=== PATIENT | male | born 1960 | race Caucasian/White ===

== ENCOUNTER 2017-12-09 08:34 | Inpatient (IN) | payer OTHER ==
[2017-12-09 10:02] VITALS: BMI 26.6
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
[2017-12-09] MEDS ORDERED: IBUPROFEN 400 MG TABLET (FP) PO PRN (10:50)
[2017-12-09] MEDS ORDERED: MAG HYDROX/AL HYDROX/SIMETH 30 ML UNIT-DOSE CUP PO PRN (10:50)
[2017-12-09] MEDS ORDERED: NICOTINE POLACRILEX 4 MG GUM BUC PRN (10:50)
[2017-12-09] MEDS ORDERED: MAGNESIUM HYDROX 2400MG/30ML ORAL SUSPENSION 30 ML CUP PO PRN (10:50)
[2017-12-09] MEDS ORDERED: P-EPHED 60MG/TRIPROLIDI 2.5MG TABLET PO PRN (10:50)
[2017-12-09] MEDS ORDERED: LOPERAMIDE HCL 2 MG CAPSULE PO PRN (10:50)
[2017-12-09] MEDS ORDERED: MENTHOL/PHENOL 1 EACH UD MM PRN (10:50)
[2017-12-09] MEDS ORDERED: hydrOXYzine PAMOATE 25 MG CAPSULE (FP) PO PRN (10:50)
[2017-12-09] MEDS ORDERED: MAGNESIUM CITRATE 300 ML BOTTLE PO PRN (10:50)
[2017-12-09] MEDS ORDERED: ACETAMINOPHEN 325 MG TABLET (FP) PO PRN (10:50)
[2017-12-09] MEDS ORDERED: chlordiazePOXIDE HCL 25 MG CAPSULE PO PRN (10:50)
[2017-12-09] MEDS ORDERED: guaiFENesin/D-METHORPHAN HB 10 ML UNIT-DOSE CUPS PO PRN (11:24)
[2017-12-09] MEDS ORDERED: chlordiazePOXIDE HCL 25 MG CAPSULE PO ONE (11:45)
[2017-12-09] MEDS: INSULIN (NOVOLOG MIX 70/30) 100 UNITS/ML MDV SQ SCH (17:35)
[2017-12-09] MEDS: chlordiazePOXIDE HCL 25 MG CAPSULE PO SCH ×2 (17:35→22:14)
[2017-12-09 19:15] LABS: URINE APPEARANCE CLEAR; URINE BILIRUBIN NEGATIVE (NEGATIVE); URINE BLOOD NEGATIVE (NEGATIVE); URINE COLOR LTYELLOW; URINE GLUCOSE (UA) 3+ (NEGATIVE); URINE KETONE 1+ (NEGATIVE); URINE LEUK ESTERASE NEGATIVE (NEGATIVE); URINE NITRITE NEGATIVE (NEGATIVE); URINE PROTEIN NEGATIVE (NEGATIVE); URINE UROBILINOGEN NEGATIVE mg/dL (0.2-1.0)
[2017-12-09] MEDS: ATORVASTATIN CA 40 MG TABLET (FP) PO SCH (22:14)
[2017-12-09] MEDS: THIAMINE HCL 100 MG TABLET (FP) PO SCH (22:14)
[2017-12-10] MEDS: chlordiazePOXIDE HCL 25 MG CAPSULE PO SCH ×4 (05:25→22:11)
[2017-12-10] MEDS ORDERED: INSULIN (NOVOLOG) ASPART 100 UNITS/ML 10ML VIAL SQ SCH (07:00)
[2017-12-10] MEDS: INSULIN (NOVOLOG MIX 70/30) 100 UNITS/ML MDV SQ SCH ×2 (07:13→17:22)
--- NOTE | 2017-12-10 07:29 | CONSULT ---
[facility] Psychiatric Consult - Data Date of interview: 12/10/17 Admission source: [facility] ED Identifying data: Mr Watson is a 57 years old maried male, father of a 34 years old son, unemployed on SSI, homeless seeking detox treatment for alcohol Substance Abuse History: Reports history of alcohol use. He started drinking alcohol at age 19, consumes one pint of liquor & 15x 24oz of beer daily. Last drank on 12/09/17 Medical History: Significant for bronchial asthma, hypertension, hyperlipidemia , diabetes mellitus, hepatitis C and history of cardiothoracic surgery for heart bypass. Smokes 6 cigarettes daily Psychiatric History: Denies history of previous psychiatric treament Physical/Sexual Abuse/Trauma History: Denies history of emotional, physical or sexual abuse as well as DV relationship Additional Comment: Reports history of one previous misdemeanor arrest for drinking in public Mental Status Exam - Mental Status Exam Alert and Oriented to: Time, Place, Person Cognitive Function: Fair Patient Appearance: Disheveled Mood: Anxious Affect: Appropriate Patient Behavior: Cooperative Speech Pattern: Clear Voice Loudness: Normal Thought Process: Intact, Goal Oriented Hallucinations: Denies Suicidal Ideation: Denies Homicidal Ideation: Denies Insight/Judgement: Fair Appetite: Good Muscle strength/Tone: Normal Gait/Station: Normal Psychiatric Findings - Problem List ([place] 1, 2,3) (1) Alcohol-induced anxiety disorder Current Visit: Yes Status: Acute (2) Alcohol dependence with uncomplicated withdrawal Current Visit: Yes Status: Acute (3) Nicotine dependence Current Visit: Yes Status: Chronic (4) History of heart bypass surgery Current Visit: Yes Status: Resolved (5) Diabetes mellitus with insulin therapy Current Visit: Yes Status: Chronic (6) HTN (hypertension) Current Visit: Yes Status: Chronic Qualifiers: Hypertension type: essential hypertension Qualified Code(s): I10 - Essential (primary) hypertension (7) Hepatitis C Current Visit: Yes Status: Chronic Qualifiers: Viral hepatitis chronicity: chronic (8) History of PA (myocardial infarction) Current Visit: Yes Status: Chronic (9) Hypercholesteremia Current Visit: Yes Status: Chronic - Initial Treatment Plan Initial Treatment Plan: 1) Start Vistaril 25 mg po Q 4hrs prn for anxiety. 2) Continue inpatient detoxification
[2017-12-10 10:14] LABS: CHLORIDE 100 mmol/L (98-107); HEMATOCRIT 39.6 % (35.4-49); MCH 32.3 pg (25.7-33.7); MCHC 35.3 g/dl (32.0-35.9); MEAN CELL VOLUME 91.7 fl (80-96); MEAN PLT VOLUME 8.4 fl (7.5-11.1); PLATELET COUNT 155 K/MM3 (134-434); POTASSIUM 4.1 mmol/L (3.5-5.1); RBC 4.32 M/mm3 (4.00-5.60); RDW 13.8 % (11.9-15.9); SODIUM 134 mmol/L (136-145); WHITE BLOOD COUNT 4.9 K/mm3 (4.0-10.0)
[2017-12-10] MEDS: metoPROLOL SUCCINATE 25 MG TAB.SR.24H (FP) PO SCH (10:17)
[2017-12-10] MEDS: PRENATAL VITAMINS W/ FOLIC ACID TABLET (FP) PO SCH (10:17)
[2017-12-10 10:24] LABS: ALBUMIN 3.5 g/dl (3.4-5.0); ALK PHOS 117 U/L (45-117); ANION GAP 5 (8-16); BILIRUBIN,TOTAL 1.9 mg/dL (0.2-1.0); BLOOD UREA NITROGEN 11 mg/dL (7-18); CALCIUM 8.2 mg/dL (8.5-10.1); CO2 29 mmol/L (21-32); CREATININE 0.8 mg/dL (0.7-1.3); GLUCOSE,RANDOM 271 mg/dL (74-106); SGOT/AST 134 U/L (15-37); SGPT/ALT 251 U/L (12-78); TOT PROT 7.1 g/dl (6.4-8.2)
--- NOTE | 2017-12-10 15:47 | PN ---
S CIWA - CIWA Score Nausea/Vomitin Muscle Tremors: 4-Moderate,w/Arms Extend Anxiety: 3 Agitation: 3 Paroxysmal Sweats: 3 Orientation: 0-Oriented Tacttile Disturbances: 1-Very Mild Itch/Numbness Auditory Disturbances: 0-None Visual Disturbances: 0-None Headache: 2-Mild CIWA-Ar Total Score: 19 S Progress Note (SOAP) Subjective: Tremor, sweating, chills, headache, interrupted sleep Objective: 12/10/17 15:42 Last Vital Signs Temp Pulse Resp BP Pulse Ox 97 F L 104 H 18 116/80 12/10/17 14:19 12/10/17 14:19 12/10/17 14:19 12/10/17 14:19 Laboratory Tests 12/09/17 12/09/17 12/09/17 10:06 15:45 16:39 WBC RBC Hgb Hct MCV MCH MCHC RDW Plt Count MPV Sodium Potassium Chloride Carbon Dioxide Anion Gap BUN Creatinine Creat Clearance w eGFR POC Glucometer 235 397 Random Glucose Calcium Total Bilirubin AST ALT Alkaline Phosphatase Total Protein Albumin Urine Color Ltyellow Urine Appearance Clear Urine pH 6.0 Ur Specific [place] 1.015 Urine Protein Negative Urine Glucose (UA) 3+ H Urine Ketones 1+ H Urine Blood Negative Urine Nitrite Negative Urine Bilirubin Negative Urine Urobilinogen Negative Ur Leukocyte Esterase Negative RPR Titer 12/09/17 12/10/17 12/10/17 21:33 07:10 07:20 WBC 4.9 RBC 4.32 Hgb 14.0 Hct 39.6 MCV 91.7 MCH 32.3 MCHC 35.3 RDW 13.8 Plt Count 155 MPV 8.4 Sodium Potassium Chloride Carbon Dioxide Anion Gap BUN Creatinine Creat Clearance w eGFR POC Glucometer 376 334 Random Glucose Calcium Total Bilirubin AST ALT Alkaline Phosphatase Total Protein Albumin Urine Color Urine Appearance Urine pH Ur Specific [place] Urine Protein Urine Glucose (UA) Urine Ketones Urine Blood Urine Nitrite Urine Bilirubin Urine Urobilinogen Ur Leukocyte Esterase RPR Titer 12/10/17 12/10/17 07:20 07:20 WBC RBC Hgb Hct MCV MCH MCHC RDW Plt Count MPV Sodium 134 L Potassium 4.1 Chloride 100 Carbon Dioxide 29 Anion Gap 5 L BUN 11 Creatinine 0.8 Creat Clearance w eGFR > 60 POC Glucometer Random Glucose 271 H Calcium 8.2 L Total Bilirubin 1.9 H AST 134 H ALT 251 H Alkaline Phosphatase 117 Total Protein 7.1 Albumin 3.5 Urine Color Urine Appearance Urine pH Ur Specific [place] Urine Protein Urine Glucose (UA) Urine Ketones Urine Blood Urine Nitrite Urine Bilirubin Urine Urobilinogen Ur Leukocyte Esterase RPR Titer Nonreactive Labs noted: glucose 271, elevated LFTs Assessment: 12/10/17 15:47 Withdrawal symptoms Noted with hyperglycemia and elevated LFTs Plan: Continue detox Hyperglycemia secondary to DMT2 with hyperglycemia: continue regimen, start finger stick bid Elevated LFTs: denies liver problem; repeat LFT, send hepatitis c
--- NOTE | 2017-12-10 20:36 | EKG ---
Test Reason : Blood Pressure : / mmHG Vent. Rate : 103 BPM Atrial Rate : 103 BPM P-R Int : 146 ms QRS Dur : 076 ms QT Int : 352 ms P-R-T Axes : 063 045 044 degrees QTc Int : 461 ms SINUS TACHYCARDIA OTHERWISE NORMAL ECG NO PREVIOUS ECGS AVAILABLE Confirmed by HANH SMITH MD ([id number]) on 12/10/2017 8:35:56 PM Referred By: Confirmed By:HANH SMITH MD
[2017-12-10] MEDS: THIAMINE HCL 100 MG TABLET (FP) PO SCH (22:11)
[2017-12-10] MEDS: ATORVASTATIN CA 40 MG TABLET (FP) PO SCH (22:11)
[2017-12-11] MEDS: chlordiazePOXIDE HCL 25 MG CAPSULE PO SCH ×2 (05:48→10:24)
[2017-12-11] MEDS ORDERED: INSULIN (NOVOLOG MIX 70/30) 100 UNITS/ML MDV SQ ONE (05:53)
[2017-12-11] MEDS: INSULIN (NOVOLOG MIX 70/30) 100 UNITS/ML MDV SQ SCH (06:52)
[2017-12-11] MEDS: PRENATAL VITAMINS W/ FOLIC ACID TABLET (FP) PO SCH (10:24)
[2017-12-11] MEDS: metoPROLOL SUCCINATE 25 MG TAB.SR.24H (FP) PO SCH (10:24)
[2017-12-11 10:42] LABS: ALBUMIN 3.6 g/dl (3.4-5.0); BILIRUBIN,DIRECT 0.2 mg/dL (0.0-0.2); BILIRUBIN,TOTAL 0.9 mg/dL (0.2-1.0); TOT PROT 7.3 g/dl (6.4-8.2)
--- NOTE | 2017-12-11 11:23 | PN ---
[facility] CIWA - CIWA Score Nausea/Vomitin-No Nausea/No Vomiting Muscle Tremors: 4-Moderate,w/Arms Extend Anxiety: 4-Mod. Anxious/Guarded Agitation: 4-Moderately Restless Paroxysmal Sweats: 1-Minimal Palms Moist Orientation: 0-Oriented Tacttile Disturbances: 3-Moderate Itch/Numb/Burn Auditory Disturbances: 0-None Visual Disturbances: 0-None Headache: 0-None Present CIWA-Ar Total Score: 16 BHS Progress Note (SOAP) Subjective: TREMORS, ANXIETY, SWEATS, MUSCLE ACHES. PT STATES HE IS ON ANTIBIOTIC OINTMENT DUE TO ZIPPER INJURY ON HIS GROIN AREA. Objective: 12/11/17 11:22 Vital Signs Temperature 97.1 F L 12/11/17 10:09 Pulse Rate 118 H 12/11/17 10:09 Respiratory Rate 18 12/11/17 10:09 Blood Pressure 115/77 12/11/17 10:09 O2 Sat by Pulse Oximetry (%) Laboratory Last Values WBC 4.9 K/mm3 (4.0-10.0) 12/10/17 07:20 RBC 4.32 M/mm3 (4.00-5.60) 12/10/17 07:20 Hgb 14.0 GM/dL (11.7-16.9) 12/10/17 07:20 Hct 39.6 % (35.4-49) 12/10/17 07:20 MCV 91.7 fl (80-96) 12/10/17 07:20 MCH 32.3 pg (25.7-33.7) 12/10/17 07:20 MCHC 35.3 g/dl (32.0-35.9) 12/10/17 07:20 RDW 13.8 % (11.9-15.9) 12/10/17 07:20 Plt Count 155 K/MM3 (134-434) 12/10/17 07:20 MPV 8.4 fl (7.5-11.1) 12/10/17 07:20 Sodium 134 mmol/L (136-145) L 12/10/17 07:20 Potassium 4.1 mmol/L (3.5-5.1) 12/10/17 07:20 Chloride 100 mmol/L (98-107) 12/10/17 07:20 Carbon Dioxide 29 mmol/L (21-32) 12/10/17 07:20 Anion Gap 5 (8-16) L 12/10/17 07:20 BUN 11 mg/dL (7-18) 12/10/17 07:20 Creatinine 0.8 mg/dL (0.7-1.3) 12/10/17 07:20 Creat Clearance w eGFR > 60 (>60) 12/10/17 07:20 POC Glucometer 358 UNITS (80-120) 12/11/17 05:50 Random Glucose 271 mg/dL (74-106) H 12/10/17 07:20 Calcium 8.2 mg/dL (8.5-10.1) L 12/10/17 07:20 Total Bilirubin 0.9 mg/dL (0.2-1.0) D 12/11/17 07:00 Direct Bilirubin 0.2 mg/dL (0.0-0.2) 12/11/17 07:00 AST 138 U/L (15-37) H 12/11/17 07:00 ALT 282 U/L (12-78) H 12/11/17 07:00 Alkaline Phosphatase 167 U/L (45-117) H D 12/11/17 07:00 Total Protein 7.3 g/dl (6.4-8.2) 12/11/17 07:00 Albumin 3.6 g/dl (3.4-5.0) 12/11/17 07:00 Urine Color Ltyellow 12/09/17 15:45 Urine Appearance Clear 12/09/17 15:45 Urine pH 6.0 (5.0-8.0) 12/09/17 15:45 Ur Specific [employer] 1.015 (1.001-1.035) 12/09/17 15:45 Urine Protein Negative (NEGATIVE) 12/09/17 15:45 Urine Glucose (UA) 3+ (NEGATIVE) H 12/09/17 15:45 Urine Ketones 1+ (NEGATIVE) H 12/09/17 15:45 Urine Blood Negative (NEGATIVE) 12/09/17 15:45 Urine Nitrite Negative (NEGATIVE) 12/09/17 15:45 Urine Bilirubin Negative (NEGATIVE) 12/09/17 15:45 Urine Urobilinogen Negative mg/dL (0.2-1.0) 12/09/17 15:45 Ur Leukocyte Esterase Negative (NEGATIVE) 12/09/17 15:45 RPR Titer Nonreactive (NONREACTIVE) 12/10/17 07:20 LABS NOTED, ELEVATED LIVER ENZYMES PT WILL FOLLOW UP WITH HIS PRIMARY CARE PROVIDER WITH LAB RESULTS FOR WORK UP FOR ELEVATED LIVER ENZYMES AFTER DETOX. HX OF UNTREATED HEP C. 12/11/17 11:28 Assessment: 12/11/17 11:23 WITHDRAWAL SX Plan: CONTINUE DETOX BACITRACIN OINTMENT APPLY TO AREA DIRECTED.
[2017-12-11] MEDS ORDERED: BACITRACIN 0.9 GM PACKET TP SCH (12:55)
[2017-12-11 13:32] VITALS: BP 106/68; PULSE 85; TEMP 96.5
--- NOTE | 2017-12-11 15:53 | PN ---
[facility] Progress Note Note: PT DECLINED TO CONTINUE WITH DETOX. PT STATES HE WANTS TO LEAVE BECAUSE HIS WANTS HIM TO GO TO REHAB AFTER DETOX OR WILL NOT COME HOME BUT HE DOES NOT WANT THAT. SAYS HE RATHER "GO TO THE [facility] TODAY". ALL EFFORTS TO ENCOURAGE PATIENT TO STAY WAS UNSUCCESSFUL AND PATIENT MAINTAINED THAT HE MUST LEAVE TODAY. PT WAS ALSO SEEN BY HIS COUNSELOR,LENORE LORENZO. ALERT O X 3. NAD. PT SIGNED OUT AMA.
--- NOTE | 2017-12-11 15:57 | DS ---
[facility] Detox Discharge Summary Admission Date: 12/09/17 Discharge Date: 12/11/17 - History Present History: Alcohol Dependence Additional Comments: PT SIGNED OUT AMA. PT STATES HE MADE A CALL TO HIS WHO WANTS HIM TO GO TO REHAB AFTER DETOX OR ELSE NOT TO COME HOME AND "GO TO [facility]". PT SAYS HE IS NOT GOING TO REHAB AND WILL RATHER GO TO THE [facility] TODAY. PT WAS SPOKEN TO BY HIS COUNSELOR LENORE LORENZO AND THIS ACCOUNTING METHODS ANALYST BUT UNSUCCESSFUL. ALERT O X 3. NAD. Pertinent Past History: SEE DX BELOW - Physical Exam Results Vital Signs: Vital Signs Temperature 96.5 F L 12/11/17 13:31 Pulse Rate 85 12/11/17 13:31 Respiratory Rate 18 12/11/17 13:31 Blood Pressure 106/68 12/11/17 13:31 O2 Sat by Pulse Oximetry (%) Pertinent Admission Physical Exam Findings: WITHDRAWAL SX Laboratory Last Values WBC 4.9 K/mm3 (4.0-10.0) 12/10/17 07:20 RBC 4.32 M/mm3 (4.00-5.60) 12/10/17 07:20 Hgb 14.0 GM/dL (11.7-16.9) 12/10/17 07:20 Hct 39.6 % (35.4-49) 12/10/17 07:20 MCV 91.7 fl (80-96) 12/10/17 07:20 MCH 32.3 pg (25.7-33.7) 12/10/17 07:20 MCHC 35.3 g/dl (32.0-35.9) 12/10/17 07:20 RDW 13.8 % (11.9-15.9) 12/10/17 07:20 Plt Count 155 K/MM3 (134-434) 12/10/17 07:20 MPV 8.4 fl (7.5-11.1) 12/10/17 07:20 Sodium 134 mmol/L (136-145) L 12/10/17 07:20 Potassium 4.1 mmol/L (3.5-5.1) 12/10/17 07:20 Chloride 100 mmol/L (98-107) 12/10/17 07:20 Carbon Dioxide 29 mmol/L (21-32) 12/10/17 07:20 Anion Gap 5 (8-16) L 12/10/17 07:20 BUN 11 mg/dL (7-18) 12/10/17 07:20 Creatinine 0.8 mg/dL (0.7-1.3) 12/10/17 07:20 Creat Clearance w eGFR > 60 (>60) 12/10/17 07:20 POC Glucometer 358 UNITS (80-120) 12/11/17 05:50 Random Glucose 271 mg/dL (74-106) H 12/10/17 07:20 Calcium 8.2 mg/dL (8.5-10.1) L 12/10/17 07:20 Total Bilirubin 0.9 mg/dL (0.2-1.0) D 12/11/17 07:00 Direct Bilirubin 0.2 mg/dL (0.0-0.2) 12/11/17 07:00 AST 138 U/L (15-37) H 12/11/17 07:00 ALT 282 U/L (12-78) H 12/11/17 07:00 Alkaline Phosphatase 167 U/L (45-117) H D 12/11/17 07:00 Total Protein 7.3 g/dl (6.4-8.2) 12/11/17 07:00 Albumin 3.6 g/dl (3.4-5.0) 12/11/17 07:00 Urine Color Ltyellow 12/09/17 15:45 Urine Appearance Clear 12/09/17 15:45 Urine pH 6.0 (5.0-8.0) 12/09/17 15:45 Ur Specific [place] 1.015 (1.001-1.035) 12/09/17 15:45 Urine Protein Negative (NEGATIVE) 12/09/17 15:45 Urine Glucose (UA) 3+ (NEGATIVE) H 12/09/17 15:45 Urine Ketones 1+ (NEGATIVE) H 12/09/17 15:45 Urine Blood Negative (NEGATIVE) 12/09/17 15:45 Urine Nitrite Negative (NEGATIVE) 12/09/17 15:45 Urine Bilirubin Negative (NEGATIVE) 12/09/17 15:45 Urine Urobilinogen Negative mg/dL (0.2-1.0) 12/09/17 15:45 Ur Leukocyte Esterase Negative (NEGATIVE) 12/09/17 15:45 RPR Titer Nonreactive (NONREACTIVE) 12/10/17 07:20 PT WILL FOLLOW UP WITH HIS PMD WITH COPY OF LAB RESULTS PROVIDED WITH DISCHARGE PACKET. - Treatment Hospital Course: Discharged Condition Good - Medication Discharge Medications: Ambulatory Orders Atorvastatin Ca [Lipitor] 40 mg PO HS 12/09/17 Insulin (Novolog 70/30) [Novolog Mix 70/30 Flexpen -] 20 units SQ ACDIN Insulin (Novolog 70/30) [Novolog Mix 70/30 Flexpen -] 50 units SQ ACBK 12/09/17 Metoprolol Succinate [Toprol XL -] 25 mg PO DAILY 12/09/17 - Diagnosis (1) Alcohol dependence with uncomplicated withdrawal Current Visit: Yes Status: Acute (2) Diabetes mellitus with insulin therapy Current Visit: Yes Status: Chronic (3) HTN (hypertension) Current Visit: Yes Status: Chronic Qualifiers: Hypertension type: essential hypertension Qualified Code(s): I10 - Essential (primary) hypertension (4) Hepatitis C Current Visit: Yes Status: Chronic Qualifiers: Viral hepatitis chronicity: chronic (5) History of PR (myocardial infarction) Current Visit: Yes Status: Chronic (6) Hypercholesteremia Current Visit: Yes Status: Chronic (7) Nicotine dependence Current Visit: Yes Status: Acute Qualifiers: Nicotine product type: cigarettes Substance use status: in withdrawal Qualified Code(s): F17.213 - Nicotine dependence, cigarettes, with withdrawal (8) History of heart bypass surgery Current Visit: Yes Status: Resolved (9) Elevated liver function tests Current Visit: Yes Status: Acute - AMA Did Patient Leave Against Medical Advice: Yes (AMA)
[2017-12-11] MEDS ORDERED: chlordiazePOXIDE 5 MG CAPSULE PO SCH (17:00)
[2017-12-12] MEDS ORDERED: chlordiazePOXIDE HCL 10 MG CAPSULE PO SCH (17:00)
== END 2017-12-11 15:40 | disposition left against medical advice (07) | DRG 894 ==
LOC: YASAS 08:34 → Y3N 11:44
PROVIDERS: ADMIT Internal Medicine; ATTEND Internal Medicine
PROC: HZ2ZZZZ Detoxification Services for Substance Abuse Treatment (ICD-10-PCS; principal; 2017-12-09)
DX: F10.230 Alcohol dependence with withdrawal, uncomplicated (principal); F17.210 Nicotine dependence, cigarettes, uncomplicated; F10.280 Alcohol dependence with alcohol-induced anxiety disorder; I10 Essential (primary) hypertension; B18.2 Chronic viral hepatitis C; I25.2 Old myocardial infarction; E78.5 Hyperlipidemia, unspecified; R74.8 Abnormal levels of other serum enzymes; Z79.4 Long term (current) use of insulin; Z95.1 Presence of aortocoronary bypass graft; Z88.0 Allergy status to penicillin
CPT/HCPCS: 36415; 80053; 80076; 81003; 82962; 85027; 86593; 87522; 93005; 93010